=== PATIENT | female | born 1940 | race Caucasian/White ===

== ENCOUNTER 2017-07-20 19:14 | Emergency (ER) | payer MEDICARE, BC ==
[~2017-07-20] VITALS: Ht 152.4 cm; Wt 58.0 kg
[~2017-07-20 19:14] MED LIST: ALPR0.5T99 PO; FOSA70TA PO; MOTR200T PO; MULT-65 PO; PREM0.45 PO; VITALIQ EX
[2017-07-20 19:29] VITALS: BP 140/68; PULSE 64; RESP 18; TEMP 98.3
[2017-07-20] MEDS ORDERED: ALPR.5 PO (19:52)
[2017-07-20] MEDS ORDERED: PREM0.45 PO (19:52)
--- NOTE | 2017-07-20 20:32 | PD ---
HPI Chief Complaint: Fall Time Seen by Provider: 20:18 Travel History International Travel<30 days: No Contact w/Intl Traveler<30days: No Traveled to known affect area: No History of Present Illness HPI 77 year-old female presents to the emergency room for evaluation of right posterior rib pain after trip and fall just prior to arrival. Patient tripped on a step and fell backwards striking her back on the concrete. She denies hitting her loss of consciousness. No other injuries. Pain occurs when she touches her ribs. She has not taken anything for pain. No significant worsening of pain with deep breathing. No difficulty breathing. She denies hematuria. No chronic medical conditions other than essential tremors. PFSH Past Medical History Hx Anticoagulant Therapy: Yes (asa) Cardiovascular Problems: Yes Diminished Hearing: No Neurologic: Yes (ESSENTIAL TREMORS) Immunizations Current: Yes Tetanus Vaccination: < 5 Years Influenza Vaccination: No ?: Not Menopausal: Yes Past Surgical History Section: Yes Hysterectomy: Yes Joint Replacement: Yes (KNEE REPLACEMENT) Social History Alcohol Use: No Tobacco Use: No Substance Use: No Allergies-Medications (Allergen,Severity, Reaction): Coded Allergies: cephalexin (Unverified Allergy, Severe, Rash, 07/20/17) ciprofloxacin (Unverified Allergy, Severe, 07/20/17) furosemide (Unverified Allergy, Severe, Rash, 07/20/17) primidone (Unverified Allergy, Severe, HYPOTENSION, 07/20/17) Sulfa (Sulfonamide Antibiotics) (Unverified Allergy, Unknown, 07/20/17) atenolol (Unverified Allergy, Unknown, 07/20/17) hydroxyzine (Unverified Adverse Reaction, Severe, 07/20/17) BEHAVIORAL/ANXIOUS Reported Meds & Prescriptions Reported Meds & Active Scripts Active Reported Premarin (Estrogens, Conjugated) 0.45 Mg Tab 0.45 Mg PO DAILY Xanax (Alprazolam) 0.5 Mg Tab 0.5 Mg PO BID PRN Review of Systems Except as stated in HPI: all other systems reviewed are Neg Physical Exam Narrative GENERAL: Well-nourished, well-developed female in no acute distress. Afebrile. Ambulatory. SKIN: Focused skin assessment warm/dry. No erythema or ecchymosis noted. HEAD: Normocephalic. EYES: No scleral icterus. No injection or drainage. NECK: Supple, trachea midline. No JVD or lymphadenopathy. CARDIOVASCULAR: Regular rate and rhythm without murmurs, gallops, or rubs. RESPIRATORY: Breath sounds equal bilaterally. No accessory muscle use. CHEST: Mild tenderness to palpation of the right floating posterior rib. Without deformity or crepitance. No retractions or use of accessory muscles. BACK: Nontender without obvious deformity. No CVA tenderness. Data Data Last Documented VS Vital Signs Date Time Temp Pulse Resp B/P (MAP) Pulse Ox O2 Delivery O2 Flow Rate FiO2 07/20/17 19:52 97 Room Air 07/20/17 19:29 98.3 64 18 140/68 (92) Orders Orders Ribs, Uni (W/Exp Cxr-Min 3vw) (07/20/17 ) [facility] Medical Decision Making Medical Screen Exam Complete: Yes Emergency Medical Condition: Yes Medical Record Reviewed: Yes Differential Diagnosis Rib contusion, fracture, spasm, abrasion Narrative Course 77-year-old female presents to the emergency room for evaluation of right posterior rib pain after trip and fall earlier today. She landed directly on her right back. Pain is localized laterally and there is point tenderness to the rib. Patient denies hitting her loss of consciousness. No other injuries. No increased work of breathing. Vital signs stable. 97% on room air. Lungs sounds clear and equal bilaterally. No CVA tenderness. No hematuria. X-ray is negative. Patient encouraged to take Tylenol for pain and follow up with a primary care physician or return for worsening symptoms. Encouraged to take deep breaths to prevent pneumonia. She understands and agrees to plan. Diagnosis Primary Impression: Contusion of rib on right side Qualified Codes: S20.211A - Contusion of right front wall of thorax, initial encounter Referrals: Primary Care Physician Additional Instructions: Rest and drink plenty of fluids. Take deep breaths to prevent pneumonia. Take Tylenol food as directed, as needed for pain. Apply ice to the affected area for 20 minutes at a time, as needed for pain and swelling. Follow-up with a primary care physician. Return to the emergency room for worsening symptoms. Disposition: 01 DISCHARGE HOME Condition: Stable Masha Rae Jul 20, 2017 20:32
--- NOTE | 2017-07-20 21:03 | RADRPT ---
EXAM DATE/TIME: 07/20/2017 20:44 [facility] COMPARISON: No previous studies available for comparison. INDICATIONS : Right lower rib pain post fall. MEDICAL HISTORY : None. SURGICAL HISTORY : None. ENCOUNTER: Initial ACUITY: 1 day PAIN SCORE: 8/10 LOCATION: Right lower chest FINDINGS: Multiple views of the right ribs were performed. There is no evidence of displaced fracture. No triston tructive lesions or areas of periosteal thickening are seen. Expiratory view of the chest is negativ e for pneumothorax. The mediastinal structures are midline. CONCLUSION: No acute cardiopulmonary disease demonstrated. No perceptible rib fracture. Elías Fischer MD on July 20, 2017 at 21:01 Board Certified Radiologist. This report was verified electronically.
== END 2017-07-20 21:50 | disposition home or self-care (01) ==
LOC: PHEFT 19:14
DX: S20.211A Contusion of right front wall of thorax, initial encounter (principal); Z79.82 Long term (current) use of aspirin; Z86.79 Personal history of other diseases of the circulatory system; Z86.69 Personal history of other diseases of the nervous system and sense organs; W01.0XXA Fall on same level from slipping, tripping and stumbling without subsequent striking against object, initial encounter
CPT/HCPCS: 71101; 99283

== ENCOUNTER 2018-03-07 17:23 | Emergency (ER) | payer MEDICARE, BC ==
[~2018-03-07] VITALS: Ht 152.4 cm; Wt 59.6 kg
[~2018-03-07 17:23] MED LIST changes: +ALPR.5 PO; -ALPR0.5T99 PO; -FOSA70TA PO; -MOTR200T PO; -MULT-65 PO; -VITALIQ EX
[2018-03-07 17:27] VITALS: BP 136/80; PULSE 96; RESP 18; TEMP 98.8; O2SAT 98
--- NOTE | 2018-03-07 17:37 | PD ---
HPI Chief Complaint: Bite or Sting Time Seen by Provider: 17:32 Travel History International Travel<30 days: No Contact w/Intl Traveler<30days: No Traveled to known affect area: No History of Present Illness HPI Patient comes to the emergency department complaining of multiple cat bites bilateral hands that occurred this morning. Patient states she was tried putting flea powder on her cat and the cat did not like it and started biting and scratching her. Patient believes her tetanus shot is up-to-date but is uncertain. Patient reports calling 911 was checked out by EMS who recommended she come to the hospital she started getting redness or pain with it. Patient complaining of soreness over left thumb and right index finger around bites without radiation. Patient reports rinsing off wounds with water and putting antibiotic ointment on 1 of the lesions. Reports pain is worse to palpation with certain movement. Not touching improves the pain. Chart was reviewed shows patient had tetanus shot in 2014. Patient reports she is able to take penicillin. Patient is requesting a dose of her home medication of Xanax as she states she forgot to take this. Patient reports cat's vaccinations are up- to-date. PFSH Past Medical History Hx Anticoagulant Therapy: Yes (asa) Cardiovascular Problems: Yes Diminished Hearing: No Neurologic: Yes (ESSENTIAL TREMORS) Immunizations Current: Yes Menopausal: Yes Past Surgical History Section: Yes Hysterectomy: Yes Joint Replacement: Yes (KNEE REPLACEMENT) Social History Alcohol Use: No Tobacco Use: No Substance Use: No Allergies-Medications (Allergen,Severity, Reaction): Coded Allergies: cephalexin (Unverified Allergy, Severe, Rash, 03/07/18) ciprofloxacin (Unverified Allergy, Severe, 03/07/18) furosemide (Unverified Allergy, Severe, Rash, 03/07/18) primidone (Unverified Allergy, Severe, HYPOTENSION, 03/07/18) tramadol (Verified Allergy, Severe, Twitching, 03/07/18) Sulfa (Sulfonamide Antibiotics) (Unverified Allergy, Unknown, 03/07/18) atenolol (Unverified Allergy, Unknown, 03/07/18) hydroxyzine (Unverified Adverse Reaction, Severe, 03/07/18) BEHAVIORAL/ANXIOUS Reported Meds & Prescriptions Reported Meds & Active Scripts Active Augmentin (Amoxicillin-Clavulanate) 875-125 Mg Tab 1 Tab PO BID 10 Days Reported Hyoscyamine (Hyoscyamine Sulfate) 0.125 Mg Tab 0.125 Mg PO Q4H Aspirin Children's (Aspirin) 81 Mg Chew 81 Mg CHEW DAILY Vitamin D-1000 (Cholecalciferol) 1,000 Unit Tab 2,000 Units PO DAILY Multiple Vitamin 1 Tab 1 Tab PO DAILY Atelvia (Risedronate) 35 Mg Tabdr 35 Mg PO Q7D Premarin (Estrogens, Conjugated) 0.45 Mg Tab 0.45 Mg PO DAILY Xanax (Alprazolam) 0.5 Mg Tab 0.5 Mg PO BID PRN Review of Systems Except as stated in HPI: all other systems reviewed are Neg Physical Exam Narrative GENERAL: Well-developed, well nourished, in no acute distress, and non-ill appearing. SKIN: Multiple superficial bite and scratch zepeda noted bilateral hands with moderate tenderness noted proximal phalanx right index finger proximal phalanx left thumb. No crepitus or foreign body noted. Patient has a scratch noted over the right anterior lower leg. No crepitus or foreign body noted. Neurovascularly intact distally. HEAD: Atraumatic. Normocephalic. EYES: Pupils equal and round. EOMI. No scleral icterus. No injection or drainage. ENT: No nasal bleeding or discharge. Mucous membranes pink and moist. NECK: Trachea midline. Supple. No nuclear rigidity. RESPIRATORY: No accessory muscle use. No respiratory distress. MUSCULOSKELETAL: No obvious deformities. No clubbing. No cyanosis. No edema. Full range of motion. NEUROLOGICAL: Awake and alert. No obvious cranial nerve deficits. Motor grossly within normal limits. Normal speech. PSYCHIATRIC: Appropriate mood and affect; insight and judgment normal. Data Data Last Documented VS Vital Signs Date Time Temp Pulse Resp B/P (MAP) Pulse Ox O2 Delivery O2 Flow Rate FiO2 03/07/18 17:27 98.8 96 18 136/80 (98) 98 Orders Orders Hand, Complete ([id number]) (03/07/18 ) Hand, Complete ([id number]) (03/07/18 ) Alprazolam (Xanax) (03/07/18 18:00) Amoxicil-Clavulanate (Augmentin) (03/07/18 18:00) Ed Discharge Order (03/07/18 18:58) MDM Medical Decision Making Medical Screen Exam Complete: Yes Emergency Medical Condition: Yes Interpretation(s) Last Impressions Hand X-Ray 03/07/18 0000 Signed Impressions: Service Date/Time: Wednesday, March 07, 2018 18:09 - CONCLUSION: 1. No acute bony abnormality. Osteoarthritis of the left hand. Hayes Castillo MD Hand X-Ray 03/07/18 0000 Signed Impressions: Service Date/Time: Wednesday, March 07, 2018 18:09 - CONCLUSION: 1. No acute findings. Osteoarthritis of the right hand. Hayes Castillo MD Differential Diagnosis Bite, cat scratch, wound infection, foreign body Narrative Course The patient suffered animal bite wound. The animal is domesticated, vaccinations are reported to be UTD and the animal can be watched. There is no evidence of deep tissue involvement and/or local tendon involvement. There was no evidence to suggest foreign bodies. Visual and tactile exams were unremarkable. There was no evidence of neurovascular injury as well. The patients wounds were irrigated copiously, cleaned and dressed. Rabies prophylaxis was discussed with the patient and exposure appears low risk and not indicated. The patient was given signs and symptom warnings for infection, such as increasing pain, pain with movement of involved extremity,redness, swelling, associated heat, pus or fever. The patient was given antibiotics to cover mouth wicho and instructions for timely follow up for wound recheck. The patient agreed with plan of care. Animal control was contacted per hospital protocol. X-ray was performed and there was no foreign body or tooth/tooth fragment. Patient in no obvious distress upon re-evaluation. All pertinent Radiology result(s) discussed with patient. Patient was asked if they wanted to speak to my attending, which the patient did not wish to do at this time. Any questions/ concerns in reference to patient diagnosis/condition discussed and clarified prior to patient's discharge. Reinforced sheer importance of close follow up with patient's primary physician or primary care clinic and/or hand surgeon. Instructed patient to return to ED immediately, if symptoms return/worsen. Patient showed understanding of above instructions. Further instructions and recommendations were detailed in discharge paperwork. Patient ambulated without difficulty out of ED at discharge. Diagnosis Primary Impression: Cat bite of hand Qualified Codes: S61.459A - Open bite of unspecified hand, initial encounter; W55.01XA - Bitten by cat, initial encounter Referrals: Hank Roberto III, MD Patient Instructions: Animal Bite (ED), General Instructions Additional Instructions: Follow-up with your primary care physician and/or hand surgeon in 3-5 days for reevaluation. Take all medication as prescribed. Keep wound dry and clean as possible using soap and water. Use Neosporin to promote healing. Return to the emergency department if symptoms get worse. Med/Other Pt SpecificInfo: Prescription(s) given Scripts Amoxicillin-Clavulanate (Augmentin) 875-125 Mg Tab 1 TAB PO BID for Infection for 10 Days, #20 TAB 0 Refills Prov: Seamus Drake MD 03/07/18 Disposition: 01 DISCHARGE HOME Condition: Stable Fito Guevara March 07, 2018 17:37
[2018-03-07] MEDS ORDERED: ATELTAB PO (17:45)
[2018-03-07] MEDS ORDERED: ASPI81CH7 CHEW (17:45)
[2018-03-07] MEDS ORDERED: HYOS1TAB9 PO (17:45)
[2018-03-07] MEDS ORDERED: VITA1000 PO (17:45)
[2018-03-07] MEDS ORDERED: MULTTAB67 PO (17:45)
[2018-03-07] MEDS ORDERED: ALPRAZolam 0.5 MG TAB PO ONE (18:00)
[2018-03-07] MEDS ORDERED: AMOXICILLIN/CLAVULANATE K 875 MG TAB PO ONE (18:00)
[2018-03-07] MEDS ORDERED: AUGM875T3 PO (18:39)
--- NOTE | 2018-03-07 18:55 | RADRPT ---
EXAM DATE/TIME: 03/07/2018 18:09 [facility] COMPARISON: HAND RIGHT COMPLETE ([id number]), April 22, 2015, 9:54. INDICATIONS : Right hand wounds and swelling. Cat attacked patient this morning. Cat bites all over hand. MEDICAL HISTORY : None. SURGICAL HISTORY : None. ENCOUNTER: Initial ACUITY: 1 day PAIN SCORE: 8/10 LOCATION: Right hand. FINDINGS: Three view examination of the right hand demonstrates no soft tissue swelling, dislocation, or fractu re. The carpal bones appear intact. The interphalangeal and metacarpophalangeal joints are intact. Bony mineralization is normal. CONCLUSION: 1. No acute findings. Osteoarthritis of the right hand. Hayes Castillo MD on March 07, 2018 at 18:51 Board Certified Radiologist. This report was verified electronically.
--- NOTE | 2018-03-07 18:56 | RADRPT ---
EXAM DATE/TIME: 03/07/2018 18:09 [facility] COMPARISON: No previous studies available for comparison. INDICATIONS : Left hand wounds and swelling. Cat attacked patient this morning. Cat bites all over hand. MEDICAL HISTORY : None. SURGICAL HISTORY : None. ENCOUNTER: Initial ACUITY: 1 day PAIN SCORE: 8/10 LOCATION: Left hand. FINDINGS: Three view examination of the left hand demonstrates no soft tissue swelling, dislocation, or fractur e. The carpal bones appear intact. The interphalangeal and metacarpophalangeal joints are intact. Bony mineralization is normal. CONCLUSION: 1. No acute bony abnormality. Osteoarthritis of the left hand. Hayes Castillo MD on March 07, 2018 at 18:53 Board Certified Radiologist. This report was verified electronically.
== END 2018-03-07 19:10 | disposition home or self-care (01) ==
LOC: PHEFT 17:23
DX: S61.452A Open bite of left hand, initial encounter (principal); S61.451A Open bite of right hand, initial encounter; M19.042 Primary osteoarthritis, left hand; M19.041 Primary osteoarthritis, right hand; W55.01XA Bitten by cat, initial encounter; Z79.899 Other long term (current) drug therapy; Z79.82 Long term (current) use of aspirin; Z88.2 Allergy status to sulfonamides; Z88.8 Allergy status to other drugs, medicaments and biological substances
CPT/HCPCS: 73130; 99283